=== PATIENT | female | born 1940 | race Caucasian/White ===

== ENCOUNTER 2018-10-24 12:50 | Outpatient (CLI) | payer MEDICARE, BC ==
--- NOTE | 2018-10-24 14:57 | CT ---
CT ABDOMEN AND LYNETTE NONCONTRAST: HISTORY: Flank pain. Renal stones. FINDINGS: No comparison. Each renal collecting system, ureter, and the urinary bladder are decompressed withou t stones evident. Calcification at each renal hilum are related to the arteries. Other arterial moni cifications throughout the abdomen and pelvis. Lack of contrast limits evaluation for other abnormalities. Calcified granulomata are consistent wit h healed granulomatous disease. Degenerative changes lumbar spine. No evidence of bowel obstruction . IMPRESSION: 1. No CT evidence of urinary tract obstruction or calcification. 2. Prominent atherosclerosis. POS: ALO
== END 2018-10-24 12:51 | disposition home or self-care (01) ==
LOC: SCSCT 12:50
PROVIDERS: ATTEND Psychiatry & Neurology Neurology
DX: G63 Polyneuropathy in diseases classified elsewhere (principal); I70.0 Atherosclerosis of aorta
CPT/HCPCS: 74176

== ENCOUNTER 2019-02-27 15:47 | Outpatient (CLI) | payer MEDICARE, BC ==
--- NOTE | 2019-02-27 17:01 | MRI ---
MRI lumbar spine noncontrast: HISTORY: Low back pain. Patient bent over and felt a pop in January 2019. COMPARISON: None FINDINGS: T1 marrow signal hypointensity with associated T2 and STIR hyperintensity at the L1 vertebral body le alli. Findings are compatible with a severe osteoporotic fracture with associated vertebral plana. Mild retropulsion. Abnormal signal does involve the right and to lesser extent left pedicle. There ar e type II Modic changes along the left aspect of the L3-L4 disc space Appropriate signal intensity of the paraspinal muscles. Bilateral renal cortical cysts and gallstones are noted. Conus medullaris the T12-L1 disc space. T12-L1:No significant central canal stenosis. Moderate bilateral foraminal narrowing. L1-L2:Mild central canal stenosis secondary to generalized disc bulge. Moderate bilateral foraminal n arrowing. L1 vertebral body: Mild stenosis secondary to retropulsion. L2-L3:Mild loss of disc space height. Generalized disc bulge, ligamentum flavum thickening and facet hypertrophy result in mild central canal stenosis. Moderate right and left neural foraminal narrowing. L3-L4:Desiccation with mild loss of disc space height. Generalized disc bulge, ligament flavum thicke janene and facet hypertrophy result in mild to moderate central canal stenosis. Moderate right and left foraminal narrowing. L4-L5: Adequate disc hydration. No significant loss of disc space height. Generalized disc bulge, lig ament flavum thickening and facet hypertrophy result in mild central canal stenosis. Moderate bilateral neural foraminal narrowing. L5-S1:Adequate disc hydration. Midline/left subarticular T2 hyperintensity along the margin of the di sc compatible with annular fissure. This annular fissure abuts the traversing left S1 nerve root. There is a generalized disc bulge which abuts both traversing S1 nerve roots without significant mass effect upon the thecal sac. There is ligamentum flavum thickening and facet hypertrophy. Mild central canal stenosis. Moderate right and left neural foraminal narrowing IMPRESSION: 1. Annular fissure at L5-S1. Mass effect without obscuration bilateral traversing S1 nerve root 2. Severe compression fracture with vertebral plana at L1. Transcribed Date/Time: 02/27/2019 5:21 PM
== END 2019-02-27 15:48 | disposition home or self-care (01) ==
LOC: SCSMRI 15:47
PROVIDERS: ATTEND Psychiatry & Neurology Neurology
DX: G63 Polyneuropathy in diseases classified elsewhere (principal); S22.019A Unspecified fracture of first thoracic vertebra, initial encounter for closed fracture; M48.8X7 Other specified spondylopathies, lumbosacral region
CPT/HCPCS: 72148